=== PATIENT | male | born 1990 | race American Indian/Alaskan Native ===

== ENCOUNTER 2017-06-24 20:55 | Emergency (ER) | payer OTHER ==
[2017-06-24 20:56] VITALS: BMI 19.6
[2017-06-24 21:05] VITALS: TEMP 98.9
[2017-06-24] MEDS ORDERED: Naproxen 550 mg Tab PO STA (21:32)
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
[2017-06-24 23:51] VITALS: BP 138/72; PULSE 74; RESP 18; O2SAT 99
--- NOTE | 2017-06-25 10:14 | RAD ---
HISTORY: pain COMPARISON: No prior. FINDINGS: BONES: Alignment maintained. No fracture. DISC SPACES: Normal. SOFT TISSUES: Normal. OTHER FINDINGS: There is curvature of the spine convex to the right with a Freedman angle of 11 degrees IMPRESSION: No acute findings. Mild curvature of the spine
--- NOTE | 2017-06-25 10:14 | RAD ---
PROCEDURE: Radiographs of the Lumbar Spine. HISTORY: pain COMPARISON: No prior. FINDINGS: BONES: Normal alignment. No listhesis. No fracture. DISC SPACES: Unremarkable. OTHER FINDINGS: None. IMPRESSION: Unremarkable radiographs of the lumbar spine.
--- NOTE | 2017-06-25 10:15 | RAD ---
PROCEDURE: Left Wrist Radiographs. HISTORY: pain COMPARISON: None. FINDINGS: BONES: Normal. No fracture. JOINTS: Normal. No dislocation. SOFT TISSUES: Normal. OTHER FINDINGS: None. IMPRESSION: Normal left wrist radiographs.
== END 2017-06-24 23:51 | disposition home or self-care (01) ==
LOC: ED 20:55
DX: M54.9 Dorsalgia, unspecified (principal); S63.502A Unspecified sprain of left wrist, initial encounter; V49.59XA Passenger injured in collision with other motor vehicles in traffic accident, initial encounter; Y92.410 Unspecified street and highway as the place of occurrence of the external cause